=== PATIENT | female | born 1960 | race Caucasian/White ===

== ENCOUNTER 2017-01-21 14:39 | Emergency (ER) | payer BC, OTHER ==
[~2017-01-21] VITALS: Ht 170.2 cm; Wt 66.0 kg
[2017-01-21 15:33] LABS: DAU SCREEN DISCLAIMER
[2017-01-21 15:34] LABS: HEMATOCRIT 44.9 % (34.6-47.8); HEMOGLOBIN 15.1 g/dL (11.7-16.4); WHITE BLOOD COUNT 8.7 x10^3/uL (3.4-10)
[2017-01-21 15:44] LABS: BLOOD UREA NITROGEN 6 mg/dL (7-18)
[2017-01-21 15:46] LABS: ACETAMINOPHEN < 2 mcg/mL (10-30)
[2017-01-21] MEDS ORDERED: LORazepam 1MG TABLET PO ONE ×2 (17:00→19:30)
[2017-01-21] MEDS ORDERED: LORazepam 1MG TABLET ONE ×2 (17:03→19:07)
[2017-01-21] MEDS ORDERED: PLEASE ENTER ALLERGIES MC SCH ×2 (19:30)
[2017-01-21] MEDS ORDERED: NICOTINE 21 MG/24 HR PATCH.TD24 ONE (20:15)
[2017-01-21] MEDS ORDERED: IBUPROFEN 200 MG TABLET ONE (20:15)
[2017-01-21] MEDS ORDERED: IBUPROFEN 200 MG TABLET PO ONE (20:30)
[2017-01-21] MEDS ORDERED: NICOTINE 21 MG/24 HR PATCH.TD24 TD ONE (20:30)
[2017-01-21 22:42] VITALS: BP 125/80
== END 2017-01-21 22:57 | disposition home or self-care (01) ==
LOC: ED 22:24
DX: R45.851 Suicidal ideations (principal); F10.120 Alcohol abuse with intoxication, uncomplicated; F32.9 Major depressive disorder, single episode, unspecified; F43.10 Post-traumatic stress disorder, unspecified
CPT/HCPCS: 36415; 80048; 80307; 80329; 82040; 85025; 99284; G0480